=== PATIENT | female | born 1985 | race Caucasian/White ===

== ENCOUNTER 2017-04-02 14:26 | Emergency (ER) | payer SELFPAY ==
[2017-04-02 14:30] VITALS: BMI 30.7
--- NOTE | 2017-04-02 15:43 | PDOC ---
History of Present Illness - General History Source: Patient Exam Limitations: No Limitations - History of Present Illness Initial Comments: 04/02/17 16:11 The patient is a 31 year old female, with a significant past medical history of asthma, abnormal pap, abnormal anal pap, anogenital condyloma, and HIV(Follows up at [facility] and compliant with medications), who presents to emergency department complaining of a headache for approximately 1 week. The patient reports her headache is localized to her forehead and is nonradiating in nature. She denies any changes in vision, neck pain, chills, dizziness, head trauma, or LOC. The patient reports a subjective fever when her symptoms began. She states her fever has since resolved. Three days ago, she reports developing associated nausea and vomiting. She states she is unable to tolerate any solids or fluids p.o. She reports decreased appetite secondary to nausea and vomiting. Patient reports diarrhea, but denies any abdominal pain or constipation. She denies any chest pain, shortness of breath, diaphoresis, or palpitations.The patient denies any recent travel or sick contacts. The patient reports she is currently on her menstrual period. Allergies: None reported. Past Surgical History: Ovarian Cystectomy Social History: Former smoker (Quit 2006). Denies alcohol or drug use. PCP: Dr. Gonzales <Cecily Montgomery - Last Filed: 04/02/17 17:01> <Francheska Jimenez - Last Filed: 04/02/17 18:01> - General Chief Complaint: Headache Stated Complaint: HEADACHE, VOMITING Time Seen by Provider: 04/02/17 15:36 Past History <Cecily Montgomery - Last Filed: 04/02/17 17:01> - Past Medical History Anemia: No Asthma: Yes Cancer: No Cardiac Disorders: No CVA: No COPD: No CHF: No Dementia: No Diabetes: No GI Disorders: No Disorders: Yes (abnormal pap, abnormal anal pap, anogenital condyloma) HTN: No Hypercholesterolemia: No HIV: Yes Liver Disease: No Seizures: No Thyroid Disease: No - Surgical History Abdominal Surgery: Yes (OVARIAN CYST REMOVED) - Immunization History Immunization Up to Date: Yes - Psycho/Social/Smoking Cessation Hx Anxiety: No Suicidal Ideation: No Smoking History: Never smoked Have you smoked in the past 12 months: No Number of Cigarettes Smoked Daily: 0 If you are a former smoker, when did you quit?: 2006 Cigars Per Day: 0 Hx Alcohol Use: No Drug/Substance Use Hx: No Substance Use Type: None Hx Substance Use Treatment: No <Francheska Jimenez - Last Filed: 04/02/17 18:01> - Past Medical History Allergies/Adverse Reactions: Allergies Allergy/AdvReac Type Severity Reaction Status Date / Time No Known Allergies Allergy Verified 04/02/17 14:30 Home Medications: Ambulatory Orders Darunavir/Cobicistat [Prezcobix 800 mg-150 mg Tablet] 1 each PO DAILY #30 tablet 12/08/16 Dolutegravir Sodium [Tivicay] 50 mg PO DAILY #30 tablet 12/08/16 Emtricitabine/Tenofov Alafenam [Descovy 200-25 mg Tablet] 1 each PO DAILY #30 tablet 12/08/16 Folic Acid/Multivit-Min/Lutein [Adult Multivitamin Gummies] 1 each PO DAILY #30 tab.chew 12/08/16 Loratadine [Claritin -] 10 mg PO DAILY PRN #30 tab 12/08/16 Vitamin B Complex [B Complex] 1 each PO DAILY #30 tablet 12/08/16 Albuterol Sulfate Inhaler - [Ventolin HFA Inhaler -] 1 - 2 inh PO Q6H PRN #1 inhaler 03/31/17 Amox-Tr/K Cl [Augmentin - 875Mg Tablet] 1 tab PO BID #14 tablet 03/31/17 Guaifenesin Dm [Robitussin Dm -] 10 ml PO Q4H PRN #240 ml 03/31/17 Loratadine/Pseudoephedrine [Allergy Relief D 12-Hour Tab] 1 each PO BID PRN #14 tab.er.12h 03/31/17 Sodium Chloride [Saline Nasal Byron] 1 - 2 sprays NS PRN #1 spray 03/31/17 Review of Systems - Review of Systems Able to Perform ROS?: Yes Comments:: 04/02/17 16:12 GENERAL/CONSTITUTIONAL: Yes: +fever. No chills. No weakness. HEAD, EYES, EARS, NOSE AND THROAT: No change in vision. No ear pain or discharge. No sore throat. CARDIOVASCULAR: No chest pain or shortness of breath. RESPIRATORY: No cough, wheezing, or hemoptysis. GASTROINTESTINAL: Yes: +nausea, +vomiting, +diarrhea. No constipation. GENITOURINARY: No dysuria, frequency, or change in urination. MUSCULOSKELETAL: No joint or muscle swelling or pain. No neck or back pain. SKIN: No rash NEUROLOGIC: Yes: +headache. No vertigo, loss of consciousness, or change in strength/sensation. ENDOCRINE: Yes: +decreased appetite. No increased thirst. No abnormal weight change. HEMATOLOGIC/LYMPHATIC: No anemia, easy bleeding, or history of blood clots. ALLERGIC/IMMUNOLOGIC: No hives or skin allergy. <Montgomery,Ayannaandi - Last Filed: 04/02/17 17:01> *Physical Exam - Vital Signs Last Vital Signs Temp Pulse Resp BP Pulse Ox 98.8 F 105 H 18 142/70 96 04/02/17 14:27 04/02/17 14:27 04/02/17 14:27 04/02/17 14:27 04/02/17 14:27 - Physical Exam Comments: 04/02/17 16:14 GENERAL: Awake, alert, and fully oriented, in no acute distress. Poor dentition. HEAD: No signs of trauma EYES: PERRLA, EOMI, sclera anicteric, conjunctiva clear ENT: Auricles normal inspection, hearing grossly normal, nares patent, oropharynx clear without exudates. Moist mucosa NECK: Normal ROM, supple, no lymphadenopathy, JVD, or masses LUNGS: Breath sounds equal, clear to auscultation bilaterally. No wheezes, and no crackles HEART: Regular rate and rhythm, normal S1 and S2, no murmurs, rubs or gallops ABDOMEN: Soft, nontender, normoactive bowel sounds. No guarding, no rebound. No masses EXTREMITIES: Normal range of motion, no edema. No clubbing or cyanosis. No cords, erythema, or tenderness NEUROLOGICAL: Cranial nerves II through XII grossly intact. Normal speech, normal gait SKIN: Warm, Dry, normal turgor, no rashes or lesions noted. <MontgomeryDianemiliano - Last Filed: 04/02/17 17:01> - Vital Signs Last Vital Signs Temp Pulse Resp BP Pulse Ox 98.8 F 105 H 18 142/70 96 04/02/17 14:27 04/02/17 14:27 04/02/17 14:27 04/02/17 14:27 04/02/17 14:27 <Francheska Jimenez - Last Filed: 04/02/17 18:01> ED Treatment Course - LABORATORY CBC & Chemistry Diagram: 04/02/17 15:59 04/02/17 15:59 <Cecily Montgomery - Last Filed: 04/02/17 17:01> - LABORATORY CBC & Chemistry Diagram: 04/02/17 15:59 04/02/17 15:59 <Francheska Jimenez - Last Filed: 04/02/17 18:01> Medical Decision Making - Medical Decision Making 04/02/17 18:01 Pt reassessed. She states her headache has resolved. Stable for DC home. <Francheska Jimenez - Last Filed: 04/02/17 18:01> *DC/Admit/Observation/Transfer - Attestations Scribe Attestion: 04/02/17 16:14 Documentation prepared by Cecily Montgomery, acting as biomedical manager for Francheska Jimenez MD. <Cecily Montgomery - Last Filed: 04/02/17 17:01> - Discharge Dispostion Admit: No <Francheska Jimenez - Last Filed: 04/02/17 18:01> Diagnosis at time of Disposition: Headache Qualifiers: Headache type: unspecified Headache chronicity pattern: acute headache Intractability: not intractable Qualified Code(s): R51 - Headache - Discharge Dispostion Disposition: HOME Condition at time of disposition: Stable - Referrals Referrals: Sourav Gonzales MD [Primary Care Provider] - - Patient Instructions Printed Discharge Instructions: DI for Headache
[2017-04-02] MEDS ORDERED: METOCLOPRAMIDE HCL INJECTION 10 MG/2 ML VIAL IVPB ONE (15:58)
[2017-04-02] MEDS ORDERED: SODIUM CHLORIDE 1,000 ML IV STA (15:58)
[2017-04-02] MEDS ORDERED: METOCLOPRAMIDE HCL INJECTION 10 MG/2 ML VIAL ONE (16:00)
[2017-04-02 16:36] LABS: BASOPHIL 0.8 % (0-2.0); EOSINOPHIL 0.5 % (0-4.5); MCH 31.7 pg (25.7-33.7); MCHC 34.7 g/dl (32.0-36.0); MEAN CELL VOLUME 91.2 fl (80-96); MEAN PLT VOLUME 8.5 fl (7.5-11.1); NEUTROPHILS 70.6 % (42.8-82.8); PLATELET COUNT 309 K/MM3 (134-434); RDW 12.1 % (11.6-15.6); WHITE BLOOD COUNT 9.5 K/mm3 (4.0-10.0)
[2017-04-02 16:57] LABS: ALBUMIN 3.5 g/dl (3.4-5.0); ALK PHOS 99 U/L (45-117); ANION GAP 9 (8-16); BILIRUBIN,TOTAL 0.6 mg/dL (0.2-1.0); CALCIUM 9.3 mg/dL (8.5-10.1); CO2 27 mmol/L (21-32); GLUCOSE,RANDOM 86 mg/dL (74-106); SGOT/AST 50 U/L (15-37); SGPT/ALT 66 U/L (12-78); TOT PROT 8.1 g/dl (6.4-8.2)
[2017-04-02] MEDS ORDERED: KETOROLAC TROMETHAMINE 30 MG/1 ML VIAL IVPUSH ONE (17:30)
[2017-04-02] MEDS ORDERED: KETOROLAC TROMETHAMINE 30 MG/1 ML VIAL ONE (18:01)
[2017-04-02 18:16] VITALS: BP 106/70; PULSE 72; TEMP 99.8
== END 2017-04-02 18:20 | disposition home or self-care (01) ==
LOC: JER 14:26
PROC: 3E0333Z Introduction of Anti-inflammatory into Peripheral Vein, Percutaneous Approach (ICD-10-PCS; principal; 2017-04-02)
PROC: 3E033GC Introduction of Other Therapeutic Substance into Peripheral Vein, Percutaneous Approach (ICD-10-PCS; 2017-04-02)
DX: R51 Headache (principal); A63.0 Anogenital (venereal) warts; Z21 Asymptomatic human immunodeficiency virus [HIV] infection status
CPT/HCPCS: 36415; 80053; 84703; 85025; 96374; 96375; 99283-25

== ENCOUNTER 2018-07-27 14:05 | Emergency (ER) | payer SELFPAY ==
[2018-07-27 14:19] VITALS: BP 110/67; PULSE 79; TEMP 98.8; BMI 29.2
--- NOTE | 2018-07-27 14:38 | PDOC ---
History of Present Illness - General Chief Complaint: Laceration Stated Complaint: LACERATION Time Seen by Provider: 07/27/18 14:23 History Source: Patient Exam Limitations: Clinical Condition - History of Present Illness Initial Comments: 07/27/18 14:34 Patient with history of HIV positive on meds present with complain of laceration to above left knee while cutting boxes with a knife an hour ago. Patient reported last tetanus vaccine 4 years ago. Denies any other symptoms Timing/Duration: 1 hour Past History - Past Medical History Allergies/Adverse Reactions: Allergies Allergy/AdvReac Type Severity Reaction Status Date / Time No Known Allergies Allergy Verified 07/27/18 14:19 Home Medications: Ambulatory Orders Ibuprofen 800 mg PO TID PRN #12 tablet 07/27/18 Sulfamethoxazole/Trimethoprim [Bactrim Ds Tablet] 1 each PO BID 5 Days #10 tablet 07/27/18 Anemia: No Asthma: Yes Cancer: No Cardiac Disorders: No CVA: No COPD: No CHF: No Dementia: No Diabetes: No GI Disorders: No Disorders: Yes (abnormal pap, abnormal anal pap, anogenital condyloma) HTN: No Hypercholesterolemia: No Liver Disease: No Seizures: No Thyroid Disease: No - Surgical History Abdominal Surgery: Yes (OVARIAN CYST REMOVED) - Immunization History Immunization Up to Date: Yes - Suicide/Smoking/Psychosocial Hx Smoking History: Never smoked Have you smoked in the past 12 months: No Number of Cigarettes Smoked Daily: 0 If you are a former smoker, when did you quit?: 2006 Cigars Per Day: 0 Information on smoking cessation initiated: No Hx Alcohol Use: No Drug/Substance Use Hx: No Substance Use Type: None Hx Substance Use Treatment: No Review of Systems - Review of Systems Able to Perform ROS?: Yes Is the patient limited Wolof proficient: No Constitutional: No: Chills, Diaphoresis, Fever, Loss of Appetite, Malaise, Night Sweats, Weakness, Weight Stable, Unintentional Wgt. Loss, Unexplained wgt Loss, Other HEENTM: No: Eye Pain, Blurred Vision, Tearing, Recent change in vision, Double Vision, Cataracts, Ear Pain, Ocular Prothesis, Ear Discharge, Nose Pain, Nose Congestion, Tinnitus, Nose Bleeding, Hearing Loss, Throat Pain, Throat Swelling , Mouth Pain, Dental Problems, Difficulty Swallowing, Mouth Swelling, Other Respiratory: No: Cough, Orthopnea, Shortness of Breath, SOB with Exertion, SOB at Rest, Stridor, Wheezing, Productive cough, Hemoptysis, Other Cardiac (ROS): No: Chest Pain, Edema, Irregular Heart Rate, Lightheadedness, Palpitations, Syncope, Chest Tightness, Other ABD/GI: No: Abdominal Distended, Abd. Pain w/ defecation, Blood Streaked Bowels , Constipated, Diarrhea, Difficulty Swallowing, Nausea, Poor Appetite, Poor Fluid Intake, Rectal Bleeding, Vomiting, Indigestion, Abdominal cramping, Tarry Stools, Other Musculoskeletal: Yes: Symptoms Reported, See HPI, Muscle Pain (laceration to above left knee). No: Back Pain, Gout, Joint Pain, Joint Swelling, Muscle Weakness, Neck Pain, Joint Stiffness, Other Integumentary: Yes: See HPI, Other (linear laceration to above left knee) All Other Systems: Reviewed and Negative *Physical Exam - Vital Signs Last Vital Signs Temp Pulse Resp BP Pulse Ox 98.8 F 79 17 110/67 99 07/27/18 14:16 07/27/18 14:16 07/27/18 14:16 07/27/18 14:16 07/27/18 14:16 - Physical Exam Comments: 07/27/18 14:36 GENERAL: Well developed, well nourished. Awake and alert. No acute distress. HEENT: Normocephalic, atraumatic. PERRLA, EOMI. No conjunctival pallor. Sclera are non- icteric. Moist mucous membranes. Oropharynx is clear. NECK: Supple. Full ROM. No JVD. Carotid pulses 2+ and symmetric, without bruits. No thyromegaly. No lymphadenopathy. CARDIOVASCULAR: Regular rate and rhythm. No murmurs, rubs, or gallops. Distal pulses are 2+ and symmetric. PULMONARY: No evidence of respiratory distress. Lungs clear to auscultation bilaterally. No wheezing, rales or rhonchi. ABDOMINAL: Soft. Non-tender. Non-distended. No rebound or guarding. No organomegaly. Normoactive bowel sounds. MUSCULOSKELETAL Normal range of motion at all joints. No bony deformities or tenderness. No CVA tenderness. EXTREMITIES: No cyanosis. No clubbing. No edema. No calf tenderness. SKIN: 4 cm superficial linear laceration to suprapatellar area with minimal bleeding. NEUROLOGICAL: Alert, awake, appropriate. Cranial nerves 2-12 intact. No deficits to light touch and temperature in face, upper extremities and lower extremities. No motor deficits in the in face, upper extremities and lower extremities. Normoreflexic in the upper and lower extremities. Normal speech. Toes are down- going bilaterally. Gait is normal without ataxia. PSYCHIATRIC: Cooperative. Good eye contact. Appropriate mood and affect. General Appearance: Yes: Nourished, Appropriately Dressed. No: Apparent Distress Procedures - Laceration/Wound Repair Left Upper Anterior Plantar Knee Wound Length: 2.6 to 5.0 cm Wound Explored: clean Wound's Depth, Shape: superficial, linear Irrigated w/ Saline: No Betadine Prep: Yes Anesthesia: 1% Lidocaine Amount of Anesthetic (ccs): 2 Wound Repaired With: Sutures, Dermabond Suture Size/Type: 5:0, nylon Number of Sutures: 4 Layer Closure: No Sterile Dressing Applied: Yes Splint Applied: No Sling Applied: No Progress: 07/27/18 14:53 4 cm linear superficial laceration to suprapatellar region clean with Betadine. Wound infiltrated with 3 mL 1% lidocaine. Wound approximated and closed with 4 interrupted 5-0 nylon sutures. Dermabond applied to dressing the wound. Bacitracin applied to wound and wound covered with adhesive bandage. Patient tolerated procedure well Medical Decision Making - Medical Decision Making 07/27/18 14:37 Patient with history of HIV positive on meds present with complain of laceration to his left suprapatellar area with a box knife an hour ago. Last tenderness vaccine 4 years ago. Wound cleaned and closed with 4 interrupted sutures. Bacitracin applied to wound. Rx Bactrim for infection prophylaxis. Patient to follow-up in one week for suture removal 07/27/18 14:54 *DC/Admit/Observation/Transfer Diagnosis at time of Disposition: Left anterior knee pain Laceration of knee, left Qualifiers: Encounter type: initial encounter Qualified Code(s): S81.012A - Laceration without foreign body, left knee, initial encounter - Discharge Dispostion Disposition: HOME Condition at time of disposition: Stable Decision to Admit order: No - Prescriptions Prescriptions: Ibuprofen 800 mg PO TID PRN #12 tablet PRN Reason: pain Sulfamethoxazole/Trimethoprim [Bactrim Ds Tablet] 1 each PO BID 5 Days #10 tablet - Referrals - Patient Instructions Printed Discharge Instructions: DI for Laceration Repair Additional Instructions: Take prescribed medications as prescribed. Apply Neosporin to wound twice a day. Follow-up in one week for suture removal. - Post Discharge Activity Forms/Work/School Notes: Back to Work
== END 2018-07-27 15:02 | disposition home or self-care (01) ==
LOC: JERFT 14:05
PROC: 0HQLXZZ Repair Left Lower Leg Skin, External Approach (ICD-10-PCS; principal; 2018-07-27)
DX: S81.012A Laceration without foreign body, left knee, initial encounter (principal); W26.0XXA Contact with knife, initial encounter; Y93.89 Activity, other specified; Y92.89 Other specified places as the place of occurrence of the external cause; Y99.8 Other external cause status; Z21 Asymptomatic human immunodeficiency virus [HIV] infection status; Z87.09 Personal history of other diseases of the respiratory system; Z86.19 Personal history of other infectious and parasitic diseases
CPT/HCPCS: 99281-25

== ENCOUNTER 2019-04-14 21:13 | Emergency (ER) | payer OTHER ==
[2019-04-14 21:38] VITALS: BP 115/68; PULSE 69; TEMP 98.4; BMI 24.3
[2019-04-14] MEDS ORDERED: KETOROLAC TROMETHAMINE 60 MG/2 ML VIAL IM ONE (22:50)
--- NOTE | 2019-04-14 22:56 | PDOC ---
History of Present Illness - General Chief Complaint: Pain Stated Complaint: LEFT HARM PAIN Time Seen by Provider: 04/14/19 22:38 History Source: Patient, Old Records Exam Limitations: No Limitations - History of Present Illness Initial Comments: 04/14/19 22:51 HISTORY OF PRESENT ILLNESS: This is a 33-year-old HIV-positive woman presents emergency department for evaluation of left shoulder pain intermittently for the past 5 days. Patient reports on the first day she had pain which was relieved with warm showers and icy hot ointment. She reported the pain returned but was responsive to the same therapy for 2 days but today the pain has not been responsive to Tylenol, [id number] mental lotions and warm moist heat. 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 She denies trauma. No recent travel or sick contacts. PAST MEDICAL HISTORY: see HPI SURGICAL HISTORY: Denies ALLERGIES: No known drug allergies REVIEW OF SYSTEMS General/Constitutional: Denies fever or chills. Denies weakness, weight change. HEENT: Denies change in vision. Denies ear pain or discharge. Denies sore throat. Cardiovascular: Denies chest pain or shortness of breath. Respiratory: Denies cough, wheezing, or hemoptysis. Gastrointestinal: Denies nausea, vomiting, diarrhea or constipation. Denies rectal bleeding. Genitourinary: Denies dysuria, frequency, or change in urination. Musculoskeletal: see HPI Skin and breasts: Denies rash or easy bruising. Neurologic: Denies headache, vertigo, loss of consciousness, or loss of sensation. Psychiatric: Denies depression or anxiety. Endocrine: Denies increased thirst. Denies abnormal weight change. Hematologic/Lymphatic: Denies anemia, easy bleeding, or history of blood clots. Allergic/Immunologic: Denies hives or skin allergy. Denies latex allergy. PHYSICAL EXAM General Appearance: Well-appearing, appropriately dressed. No apparent distress , no intoxication. Respiratory/Chest: Lungs CTAB. No shortness of breath, chest tenderness, respiratory distress, accessory muscle use. No crackles, rales, rhonchi, stridor , wheezing, dullness Cardiovascular: RRR. S1, S2. No JVD, murmur, bradycardia, tachycardia. Vascular Pulses: Radial (R): 2+, Radial (L): 2+ Musculoskeletal/Extremities: Normal inspection. Decreased range of motion of the left shoulder with abduction. No limits her range of motion other than the abduction. With abduction pain hurts from the top of the shoulder extending laterally over the humeral head to approximately senior living down left upper arm laterally. Tenderness to palpation of the deltoid muscle. No bony tenderness, crepitus or step offs are present in the left humerus. NVI. Integumentary: Appropriate color, dry, warm. No cyanosis, erythema, jaundice or rash Neurologic: auto brake technician II-XII intact. Fully oriented, alert. Appropriate mood/affect. Motor strength 5/5. No appreciable EOM palsy, facial droop or sensory deficit. Past History - Past Medical History Allergies/Adverse Reactions: Allergies Allergy/AdvReac Type Severity Reaction Status Date / Time No Known Allergies Allergy Verified 08/05/18 10:08 Home Medications: Ambulatory Orders Gloves [Nitrile Exam Gloves] 1 each MC PRN #1 box 08/16/18 Darunavir/Cob/Emtri/Tenof Alaf [Symtuza [id number] mg Tab] 1 each PO DAILY # 30 tablet 12/08/18 Dolutegravir Sodium [Tivicay] 50 mg PO DAILY #30 tablet 12/08/18 Multivitamin,Ther and Minerals [Vitamin and Minerals] 1 each PO DAILY #30 tablet 12/08/18 Albuterol Sulfate Inhaler - [Ventolin HFA Inhaler -] 1 - 2 inh PO Q6H PRN #1 inhaler 01/23/19 Guaifenesin Dm [Robitussin Dm -] 10 ml PO Q4H PRN #240 ml 01/23/19 Loratadine [Claritin -] 10 mg PO DAILY PRN #30 tablet 01/23/19 Albuterol 0.083% Nebulizer Lissette [Ventolin 0.083% Nebulizer Soln -] 1 amp NEB Q6H PRN #120 amp 02/08/19 Azithromycin [Zithromax 250mg Tablets -] 1 tab PO DAILY #6 tab 02/08/19 Beclomethasone Dipropionate [Qvar] 1 puff IH BID #1 aer.w.adap 02/08/19 Mometasone Furoate 2 spray NS DAILY #1 spray.pump 02/08/19 Anemia: No Asthma: Yes Cancer: No Cardiac Disorders: No CVA: No COPD: No CHF: No Dementia: No Diabetes: No GI Disorders: No Disorders: Yes (abnormal pap, abnormal anal pap, anogenital condyloma) HTN: No Hypercholesterolemia: No Liver Disease: No Seizures: No Thyroid Disease: No - Surgical History Abdominal Surgery: Yes (OVARIAN CYST REMOVED) - Immunization History Immunization Up to Date: Yes - Suicide/Smoking/Psychosocial Hx Smoking History: Never smoked Have you smoked in the past 12 months: No Number of Cigarettes Smoked Daily: 0 If you are a former smoker, when did you quit?: 2006 Cigars Per Day: 0 Hx Alcohol Use: No Drug/Substance Use Hx: No Substance Use Type: None Hx Substance Use Treatment: No *Physical Exam - Vital Signs Last Vital Signs Temp Pulse Resp BP Pulse Ox 98.4 F 69 19 115/68 99 04/14/19 21:36 04/14/19 21:36 04/14/19 21:36 04/14/19 21:36 04/14/19 21:36 ED Treatment Course - RADIOLOGY Radiology Studies Ordered: Category Date Time Status SHOULDER-LEFT [RAD] Stat Radiology 04/14/19 22:50 Ordered Medical Decision Making - Medical Decision Making 04/14/19 22:54 A/P: 33-year-old HIV-positive woman with atraumatic left shoulder. Increased pain with abduction of the left shoulder Tenderness to palpation over the left deltoid No bony tenderness, crepitus or step offs present to the left humerus, left clavicle or left scapula. Radial pulse 2+ bilaterally Neurovascular intact Differential diagnosis includes but is not limited to-fracture, dislocation, myalgia, tendon injury from overuse, side effect of HIV medications Patient is adamant that she is not and is willing to sign paperwork attesting to this fact X-ray of the left shoulder Toradol 60 mg IM now Reassess 04/14/19 22:56 04/14/19 23:58 X-rays read by me: No acute fractures or dislocations present. Sling Discharge home to follow-up with infectious disease specialist and orthopedist when necessary. I discussed the physical exam findings, ancillary test results and final diagnoses with the patient. I answered all of the patient's questions. The patient was satisfied with the care received and felt comfortable with the discharge plan and treatment plan. The patient will call their primary care physician within 24 hours to arrange follow-up and will return to the Emergency Department with any new, persistent or worsening symptoms. *DC/Admit/Observation/Transfer Diagnosis at time of Disposition: Shoulder pain, left Qualifiers: Chronicity: acute Qualified Code(s): M25.512 - Pain in left shoulder - Discharge Dispostion Disposition: HOME Condition at time of disposition: Stable Decision to Admit order: No - Referrals Referrals: Louis Zimmerman [Primary Care Provider] - Sourav Baugh MD [Staff Physician] - - Patient Instructions Additional Instructions: Take Tylenol or Motrin as needed for pain. Follow manufacturers instructions for appropriate dosage. Apply ice for 20 minutes and removed for at least 20 minutes before reapplying the ice. Keep sling on your arm as much as possible. You've been given the number for an orthopedist. If symptoms do not resolve within the next 7 days call the orthopedist for further evaluation. Return to emergency department for discoloration of the fingers, numbness or tingling to the fingers, worsening pain, or any other concerns. Thank you very much for choosing us to provide your emergent healthcare needs. - Post Discharge Activity Forms/Work/School Notes: Back to Work
[2019-04-14] MEDS ORDERED: KETOROLAC TROMETHAMINE 60 MG/2 ML VIAL ONE (23:49)
== END 2019-04-15 00:26 | disposition home or self-care (01) ==
LOC: JER 21:13
PROC: 3E0233Z Introduction of Anti-inflammatory into Muscle, Percutaneous Approach (ICD-10-PCS; principal; 2019-04-14)
DX: M25.512 Pain in left shoulder (principal); J45.909 Unspecified asthma, uncomplicated; Z86.19 Personal history of other infectious and parasitic diseases; Z21 Asymptomatic human immunodeficiency virus [HIV] infection status
CPT/HCPCS: 73030-TC-LT-FY; 96372; 99281-25

== ENCOUNTER → 2019-08-01 | Outpatient (CLI) | payer OTHER | LOC: YHH 14:34 ==

== ENCOUNTER 2023-03-11 15:06 | Emergency (ER) | payer OTHER ==
[2023-03-11 15:29] VITALS: TEMP 98; BMI 25.4
[2023-03-11 17:21] LABS: EPI CELLS 8 /uL (0-25.1); HYALINE CASTS 1 /uL (0-3.1); PH,URINE 5.5 (5.0-8.0); URINE APPEARANCE CLEAR; URINE BILIRUBIN NEGATIVE (NEGATIVE); URINE COLOR YELLOW; URINE GLUCOSE (UA) NEGATIVE (NEGATIVE); URINE KETONE TRACE (NEGATIVE); URINE LEUK ESTERASE NEGATIVE (NEGATIVE); URINE NITRITE NEGATIVE (NEGATIVE); URINE PROTEIN NEGATIVE (NEGATIVE); URINE RBC 1345 /uL (0-23.9); URINE UROBILINOGEN 0.2 mg/dL (0.2-1.0); URINE WBC 8 /uL (0-25.8)
[2023-03-11 17:28] LABS: BASO % 0.9 % (0-2.0); EOS % 1.2 % (0-4.5); HEMATOCRIT 28.2 % (32.4-45.2); HEMOGLOBIN 9.7 GM/dL (10.7-15.3); INR 1.59 (0.83-1.09); LYMPH % 26.3 % (8-40); MCH 33.3 pg (25.7-33.7); MCHC 34.5 g/dl (32.0-36.0); MEAN CELL VOLUME 96.6 fl (80-96); MEAN PLT VOLUME 7.6 fl (7.5-11.1); MONO % 8.5 % (3.8-10.2); NEUT % 63.1 % (42.8-82.8); PLATELET COUNT 289 10^3/uL (134-434); PROTHROMBIN TIME (PATIENT) 18.4 SEC (9.7-13.0); RBC 2.92 M/mm3 (3.60-5.2); RDW 12.8 % (11.6-15.6); WHITE BLOOD COUNT 8.6 K/mm3 (4.0-10.0)
[2023-03-11 17:30] LABS: URINE BACTERIA 40 /uL (0-1359)
[2023-03-11 17:31] LABS: ACTIVATED PTT 28.4 SECONDS (25.2-36.5)
[2023-03-11 17:32] LABS: ALBUMIN 3.2 g/dl (3.4-5.0); CALCIUM 8.7 mg/dL (8.5-10.1)
[2023-03-11 17:35] LABS: CREATININE 1.3 mg/dL (0.55-1.3)
[2023-03-11 17:37] LABS: BILIRUBIN,TOTAL 0.4 mg/dL (0.2-1); TOT PROT 6.7 g/dl (6.4-8.2)
[2023-03-11 17:58] VITALS: BP 100/74; PULSE 95; RESP 20
== END 2023-03-11 18:31 | disposition home or self-care (01) ==
LOC: JER 15:06
DX: N93.8 Other specified abnormal uterine and vaginal bleeding (principal); D25.9 Leiomyoma of uterus, unspecified; D64.9 Anemia, unspecified
CPT/HCPCS: 36415; 76830-TC; 80053; 81003; 84703; 85025; 85610; 85730; 86850; 86900; 86901; 87086; 99284-25

== ENCOUNTER 2023-05-21 12:50 | Emergency (ER) | payer OTHER ==
[2023-05-21 12:56] VITALS: RESP 18; TEMP 98.6; BMI 30.4
[2023-05-21] MEDS ORDERED: METOCLOPRAMIDE HCL INJECTION 10 MG/2 ML VIAL IVPUSH ONE (15:03)
[2023-05-21] MEDS ORDERED: SODIUM CHLORIDE 1,000 ML IV STA (15:04)
[2023-05-21] MEDS ORDERED: METOCLOPRAMIDE HCL INJECTION 10 MG/2 ML VIAL ONE (15:23)
[2023-05-21 15:25] LABS: BASO % 0.8 % (0-2.0); EOS % 0.7 % (0-4.5); HEMATOCRIT 32.9 % (32.4-45.2); HEMOGLOBIN 10.2 GM/dL (10.7-15.3); LYMPH % 48.6 % (8-40); MCH 22.2 pg (25.7-33.7); MCHC 30.8 g/dl (32.0-36.0); MEAN PLT VOLUME 7.8 fl (7.5-11.1); MONO % 5.9 % (3.8-10.2); PLATELET COUNT 225 10^3/uL (134-434); RBC 4.58 M/mm3 (3.60-5.2); RDW 18.3 % (11.6-15.6); WHITE BLOOD COUNT 6.8 K/mm3 (4.0-10.0)
[2023-05-21 15:39] LABS: POTASSIUM 4.2 mmol/L (3.5-5.1)
[2023-05-21 15:41] LABS: CALCIUM 9.6 mg/dL (8.5-10.1)
[2023-05-21 15:42] LABS: ALBUMIN 3.4 g/dl (3.4-5.0); BLOOD UREA NITROGEN 9.3 mg/dL (7-18)
[2023-05-21 15:45] LABS: CREATININE 1.2 mg/dL (0.55-1.3)
[2023-05-21 15:47] LABS: BILIRUBIN,TOTAL 0.2 mg/dL (0.2-1); TOT PROT 7.5 g/dl (6.4-8.2)
[2023-05-21 17:33] LABS: INR 1.09 (0.83-1.09); PROTHROMBIN TIME (PATIENT) 12.6 SEC (9.7-13.0)
[2023-05-21 17:35] LABS: ACTIVATED PTT 33.9 SECONDS (25.2-36.5)
[2023-05-21 21:26] LABS: BF GLUCOSE (CSF ONLY) 51 mg/dL (40-70)
[2023-05-21] MEDS ORDERED: FOLIC ACID INJECTION - 1 MG, THIAMINE HCL 100 MG, MULTIVIT INJECTION ADULT 10 ML in SOD... IVPB ONE (22:05)
[2023-05-21 22:41] LABS: CSF APPEARANCE CLEAR (CLEAR); CSF COLOR COLORLESS (COLORLESS)
[2023-05-21 22:43] LABS: CSF WBC 6 mm3 (0-5)
[2023-05-21 22:45] LABS: CSF APPEARANCE CLEAR (CLEAR); CSF COLOR COLORLESS (COLORLESS); CSF WBC 1 mm3 (0-5)
[2023-05-22 00:59] VITALS: BP 122/84; PULSE 70
== END 2023-05-22 00:59 | disposition home or self-care (01) ==
LOC: JER 12:50
PROC: 3E033GC Introduction of Other Therapeutic Substance into Peripheral Vein, Percutaneous Approach (ICD-10-PCS; principal; 2023-05-21)
PROC: 3E033GC Introduction of Other Therapeutic Substance into Peripheral Vein, Percutaneous Approach (ICD-10-PCS; 2023-05-21)
PROC: 3E033GC Introduction of Other Therapeutic Substance into Peripheral Vein, Percutaneous Approach (ICD-10-PCS; 2023-05-21)
PROC: 3E0337Z Introduction of Electrolytic and Water Balance Substance into Peripheral Vein, Percutaneous Approach (ICD-10-PCS; 2023-05-21)
PROC: 009Y30Z Drainage of Lumbar Spinal Cord with Drainage Device, Percutaneous Approach (ICD-10-PCS; 2023-05-21)
PROC: 3E033GC Introduction of Other Therapeutic Substance into Peripheral Vein, Percutaneous Approach (ICD-10-PCS; 2023-05-22)
PROC: 3E033GC Introduction of Other Therapeutic Substance into Peripheral Vein, Percutaneous Approach (ICD-10-PCS; 2023-05-22)
PROC: 3E033GC Introduction of Other Therapeutic Substance into Peripheral Vein, Percutaneous Approach (ICD-10-PCS; 2023-05-22)
PROC: 3E033GC Introduction of Other Therapeutic Substance into Peripheral Vein, Percutaneous Approach (ICD-10-PCS; 2023-05-22)
PROC: 3E033GC Introduction of Other Therapeutic Substance into Peripheral Vein, Percutaneous Approach (ICD-10-PCS; 2023-05-22)
PROC: 3E033GC Introduction of Other Therapeutic Substance into Peripheral Vein, Percutaneous Approach (ICD-10-PCS; 2023-05-22)
DX: R42 Dizziness and giddiness (principal); R51.9 Headache, unspecified; R07.2 Precordial pain; R11.0 Nausea
CPT/HCPCS: 36415; 70450-TC; 71046-TC-FY; 71275-TC; 76705-TC; 80053; 82945; 83690; 84157; 84484; 84703; 85025; 85610; 85730; 86694; 86735; 86765; 86787; 86788; 86789; 87070; 87102; 87205; 87210; 87476; 93005; 93010; 99285-25; Q9967

== ENCOUNTER 2023-10-21 13:43 | Emergency (ER) | payer OTHER ==
[2023-10-21 14:20] VITALS: BP 113/61; PULSE 78; RESP 18; TEMP 97.6; BMI 32.0
== END 2023-10-21 15:47 | disposition home or self-care (01) ==
LOC: JERFT 13:43 → JER 13:43
DX: H92.11 Otorrhea, right ear (principal); J06.9 Acute upper respiratory infection, unspecified; J02.9 Acute pharyngitis, unspecified; R09.81 Nasal congestion; H72.91 Unspecified perforation of tympanic membrane, right ear; Z20.822 Contact with and (suspected) exposure to COVID-19
CPT/HCPCS: 0241U-QW; 99283-25

== ENCOUNTER 2024-10-23 04:53 | Day surgery (SDC) | payer OTHER ==
[2024-10-22 10:38] VITALS: BMI 32.8
[2024-10-23 11:42] VITALS: RESP 18; TEMP 98.3
[2024-10-23 12:20] VITALS: BP 104/66; PULSE 85
== END 2024-10-23 12:21 | disposition home or self-care (01) ==
LOC: JASU-ENDO 04:53
PROVIDERS: ATTEND Internal Medicine Gastroenterology
PROC: 0DB78ZX Excision of Stomach, Pylorus, Via Natural or Artificial Opening Endoscopic, Diagnostic (ICD-10-PCS; 2024-10-23)
PROC: 0DB68ZX Excision of Stomach, Via Natural or Artificial Opening Endoscopic, Diagnostic (ICD-10-PCS; 2024-10-23)
PROC: 0DB98ZX Excision of Duodenum, Via Natural or Artificial Opening Endoscopic, Diagnostic (ICD-10-PCS; principal; 2024-10-23 11:30)
DX: K29.50 Unspecified chronic gastritis without bleeding (principal)
CPT/HCPCS: 81025; 88305-TC; 88342-TC